=== PATIENT | male | born 1955 | race Caucasian/White ===

== ENCOUNTER → 2016-06-09 | Day surgery (SDC) | payer OTHER ==
[~2016-06-09] VITALS: Ht 172.7 cm; Wt 84.8 kg
[~2016-06-09] MED LIST: ADVIL200 MG PO; AMLODIPINE-ATO1 EAC9 PO; ASPIRIN LO-DOSE81 MG PO; ATIVAN 1 MG1 MG PO; CPAP INH; FLONASE 50 MCG/16 GM NOSE; GLUCOPHAGE1000 MG PO; INVOKANA300 MG PO; JANUVIA 100 MG100 MG PO; LOTENSIN20 MG PO; MAXZIDE 37.5 M1 EACH PO; MOBIC7.5 MG PO; OCUVITE WITH L1 EACH PO; SINGULAIR10 MG PO; TYLENOL EXTRA500 MG PO; TYLENOL WITH C1 EACH PO; ZYRTEC10 MG PO
--- NOTE | ~2016-06-09 | OR ---
PATIENT'S NAME: UDAY GRIMES [facility] AGE: 60 Y [address] ROOM: [place] [id number] [place] [facility] [place]: 06[place]09[place] OR/Procedure Report DISCHARGE DATE: FAMILY PHYSICIAN: Antonio Jaquez ATTENDING PHYSICIAN: Alan Taylor V SURGEON: Alan Taylor MD MANAGER CLUB: DATE OF PROCEDURE: 06/09/2016 POSTOPERATIVE DIAGNOSES: 1. Chronic sinusitis. 2. Nasal obstruction secondary to nasal septal deviation and turbinate hypertrophy. 3. Left yasemin bullosa. POSTOPERATIVE DIAGNOSES: 1. Chronic sinusitis. 2. Nasal obstruction secondary to nasal septal deviation and turbinate hypertrophy. 3. Left yasemin bullosa. OPERATION/PROCEDURE: 1. Bilateral anterior endoscopic ethmoidectomy, middle meatal antrostomy. 2. Nasal septoplasty. 3. Bilateral inferior turbinate outfracture with partial resection. 4. Excision of a right yasemin bullosa. 5. Placement of bilateral Propel stents. ANESTHESIA: General endotracheal anesthesia. ESTIMATED BLOOD LOSS: Minimal. COMPLICATIONS: None. DESCRIPTION OF PROCEDURE: The patient was taken to the operating room, laid in supine position with general endotracheal anesthesia. The table was rotated to 180 degrees. Head was placed in a sniffing position. Nose was sprayed with Afrin nasal spray. Cocaine-soaked pledgets were then placed within the nasal vestibules, right and left respectively. The patient was then prepped and draped in the usual sterile fashion. Cocaine-soaked pledgets were removed from the right nasal vestibule. A 0-degree rigid Malcolm telescope was inserted within the nasal vestibule with visualization of the lateral nasal wall. The inferior turbinate as well as the yasemin bullosa were infiltrated with 1% lidocaine with epinephrine solution. Infundibulotomy incision was then performed using a sickle knife. The uncinate process was PATIENT'S NAME: [facility] AGE: 60 Y [address] ROOM: [place] [id number] [place] [facility] [place]: 06/09/2016 OR/Procedure Report DISCHARGE DATE: FAMILY PHYSICIAN: Antonio Jaquez ATTENDING PHYSICIAN: Alan Taylor V taken down using the microdebrider blade. The lateral aspect of the yasemin bullosa was then removed using a 4.0 microdebrider blade. The anterior ethmoid bulla was then fractured open. Anterior ethmoidectomy was then performed, carried along the inferior aspect of the middle turbinate skeletonizing the lamina papyracea. The grand lamella was infractured opened. Skull base was identified. Dissection was then performed from posterior to the anterior to the frontal recess exonerating the anterior ethmoid cells. The patient was noted to have an accessory ostia. This was then opened widely using the backbiting forceps. Upon completion, the inferior turbinate was outfractured. A large amount of redundant tissue on the posterior inferior aspect of the inferior turbinate was removed using a 4.0 microdebrider blade. This was then cauterized using suction Bovie electrocautery. Cocaine-soaked pledget was placed within the ethmoid cavity. Attention was turned to the left. Cocaine-soaked pledgets were removed from the left nasal vestibule. The patient had a severe right to left septal deviation with obstruction of the left nasal vestibule with large inferior nasal septal spur. There was deviation on the caudal aspect of the nasal septum to the right. Septum was infiltrated with 1% lidocaine with epinephrine solution. The left mikaela- transection incision was then performed using a #15 blade. Mucoperichondrial flap was elevated posteriorly to the bony cartilage junction. Bony cartilage junction was and quadrilateral cartilage from the maxillary crest. The patient had a large bony septal spur with impingement against the inferior turbinate on the left. The mucoperiosteum was elevated posteriorly, the portion of the perpendicular plate of the ethmoid as well as the vomer removed including the large bony septal spur. A large inferior bony septal spur was then removed using a 4.0 chisel. Mucoperichondrial flaps were placed back into apposition. The patient had severe deviation of the caudal aspect of the nasal septum to the left. Subsequently, the cartilage was divided approximately 1 cm posterior to the caudal aspect of the nasal septum. The cartilage was divided superiorly approximately 1.5 cm dorsal strut, removing a portion of the quadrilateral cartilage. A pocket was formed into the columella. The caudal aspect of the septum was then sutured to the nasal spine using a 4-0 chromic suture. Mucoperichondrial flaps were placed back in apposition. The mikaela-transfixion incision was closed using interrupted 4-0 chromic suture. Mucoperichondrial flaps and subperiosteal flaps were re- opposed using a 4-0 plain gut suture, circuited with an in-stitch fashion. Attention was then turned to the left. The 0 degree scope was placed within the left nasal vestibule. Middle turbinate was reflected medially. The anterior ethmoidectomy was then performed in a similar fashion to that of the right. Middle meatal antrostomy was performed using backbiting forceps. Hemostasis was noted to be adequate. Inferior turbinate was outfractured. A portion of the posterior-inferior aspect of the middle turbinate was resected using a 4.0 microdebrider blade. It was then cauterized using suction Bovie electrocautery. The patient tolerated the procedure well. Propel stents were then placed within the ethmoid cavity, right and left respectively. Bactroban PATIENT'S NAME: UDAY GRIMES [facility] AGE: 60 Y [address] ROOM: [place] [id number] [place] [facility] [place]: 06/09/2016 OR/Procedure Report DISCHARGE DATE: FAMILY PHYSICIAN: Antonio Jaquez ATTENDING PHYSICIAN: Alan Taylor V placed within the ethmoid cavity. Bactroban-coated nasal tampons were placed right and left respectively. The patient was aroused, extubated, and discharged from the operating room to the recovery room in satisfactory condition. MD RITIKA CABRALES/jose manuel /[id number] d: 06/09/16 2147 t: 06/16/16 0722, OPERATIVE SUMMARY
== END ==
LOC: GPOC 06-04 09:00 → GSDC 07:00
PROC: 09BV4ZZ Excision of Left Ethmoid Sinus, Percutaneous Endoscopic Approach (ICD-10-PCS; principal; 2016-06-09)
PROC: 09BU4ZZ Excision of Right Ethmoid Sinus, Percutaneous Endoscopic Approach (ICD-10-PCS; 2016-06-09)
PROC: 09SM4ZZ Reposition Nasal Septum, Percutaneous Endoscopic Approach (ICD-10-PCS; 2016-06-09)
PROC: 09BL8ZZ Excision of Nasal Turbinate, Via Natural or Artificial Opening Endoscopic (ICD-10-PCS; 2016-06-09)
PROC: 099R4ZZ Drainage of Left Maxillary Sinus, Percutaneous Endoscopic Approach (ICD-10-PCS; 2016-06-09)
PROC: 099Q4ZZ Drainage of Right Maxillary Sinus, Percutaneous Endoscopic Approach (ICD-10-PCS; 2016-06-09)
DX: J32.0 Chronic maxillary sinusitis (principal); J34.2 Deviated nasal septum; J34.3 Hypertrophy of nasal turbinates; J34.89 Other specified disorders of nose and nasal sinuses; J44.9 Chronic obstructive pulmonary disease, unspecified; I10 Essential (primary) hypertension; E11.9 Type 2 diabetes mellitus without complications; Z79.51 Long term (current) use of inhaled steroids; Z79.899 Other long term (current) drug therapy
CPT/HCPCS: A9270; J0171; J1100; J2001; J2250; J2405; J3010; J7030